=== PATIENT | male | born 1950 | race Caucasian/White ===

== ENCOUNTER → 2023-05-14 | Outpatient (CLI) | payer MEDICARE, OTHER ==
[~2023-05-14] MED LIST: CARDIZEM LA240 MG PO; DILAUDID 4MG TAB4 MG PO; EES200 MG/5 M PO; IBUPROFEN800 MG PO; Iohexol 300 - 10 ML VIAL IV ONE; LEXAPRO 10MG10 MG PO; LOPID 600M600 MG/TAB PO; MOTRIN800 MG PO; PERCOCET 325 MG1 TA2 PO; PRILOTC PO; PRINIVIL2.5 MG PO; SEE INSTRUCTIONS IT; Triamcinolone 40 MG/ML 1 ML VIAL IJ ONE
== END ==
LOC: COL.RAD 12:54
DX: M16.12 Unilateral primary osteoarthritis, left hip (principal)
CPT/HCPCS: J0665; J3301; Q9967